=== PATIENT | female | born 1980 | race Two or more races ===

== ENCOUNTER 2022-12-11 18:13 | Emergency (ER) | payer OTHER ==
[~2022-12-11] VITALS: Ht 154.9 cm; Wt 72.6 kg
[~2022-12-11 18:13] MED LIST: LAMICTAL200 MG; LAMICTAL200 MG PO; NORFLEX100 MG PO; TRAMADOL HCL50 MG PO
[2022-12-11] MEDS ORDERED: KEPPRA1000 MG (18:40)
[2022-12-11] MEDS ORDERED: ZONEGRAN100 MG (18:41)
[2022-12-11] MEDS ORDERED: MOTRIN IB200 M1 PO (18:41)
[2022-12-11] MEDS ORDERED: VIMPAT200 MG PO (18:41)
[2022-12-12] MEDS ORDERED: LEVSIN/SL0.125 MG SL (05:08)
[2022-12-12] MEDS ORDERED: INTESTINEX680 M1 PO (05:08)
== END 2022-12-12 05:13 ==
LOC: ER 18:13
DX: R10.32 Left lower quadrant pain (principal); R10.9 Unspecified abdominal pain; Z88.2 Allergy status to sulfonamides

== ENCOUNTER 2023-01-23 12:56 | Emergency (ER) | payer OTHER ==
[~2023-01-23] VITALS: Ht 154.9 cm; Wt 76.7 kg
[~2023-01-23 12:56] MED LIST changes: +INTESTINEX680 M1 PO; +KEPPRA1000 MG; +LEVSIN/SL0.125 MG SL; +MOTRIN IB200 M1 PO; +VIMPAT200 MG PO; +ZONEGRAN100 MG
== END 2023-01-23 18:23 | disposition home or self-care (01) ==
LOC: ER 12:56
DX: J40 Bronchitis, not specified as acute or chronic (principal); R53.81 Other malaise; G44.89 Other headache syndrome; R05.9 Cough, unspecified; Z20.822 Contact with and (suspected) exposure to COVID-19; Z88.2 Allergy status to sulfonamides

== ENCOUNTER 2023-06-29 14:12 | Emergency (ER) | payer OTHER ==
[~2023-06-29] VITALS: Ht 154.9 cm; Wt 73.9 kg
[2023-06-29 20:54] LABS: HEMATOCRIT 41.9 % (36.0-45.00); HEMOGLOBIN 13.3 g/dL (12.0-15.00); MEAN CELL VOLUME 77.2 fL (80.00-100.00); MEAN CORPUSCULAR HEMOGLOBIN 24.5 pg (27.00-32.0); MEAN CORPUSCULAR HGB CONC 31.8 g/dl (32.0-36.0); PLATELET COUNT 240 K/uL (150-450); RED BLOOD COUNT 5.43 M/uL (4.00-6.00); RED CELL DISTRIBUTION WIDTH 16.4 % (11.5-14.5)
[2023-06-29] MEDS ORDERED: TUSSIN DM LIQU118 ML PO (21:49)
[2023-06-29] MEDS ORDERED: KETO10TA2 PO (21:49)
[2023-06-29] MEDS ORDERED: ZITHROMAX500 MG PO (21:49)
== END 2023-06-29 21:54 | disposition home or self-care (01) ==
LOC: ER
PROVIDERS: Nurse Practitioner Family
DX: R53.81 Other malaise (principal); J06.9 Acute upper respiratory infection, unspecified; Z20.822 Contact with and (suspected) exposure to COVID-19; Z88.2 Allergy status to sulfonamides; Z91.013 Allergy to seafood